=== PATIENT | male | born 1955 | race Caucasian/White ===

== ENCOUNTER 2019-01-24 12:56 | Emergency (ER) | payer BC ==
[~2019-01-24] VITALS: Ht 182.9 cm; Wt 93.1 kg
[2019-01-24 13:14] VITALS: Ht 182.9 cm; Wt 93.1 kg
[2019-01-24] MEDS ORDERED: DILTIAZEM 25 MG INJ ONE (13:26)
[2019-01-24] MEDS ORDERED: DILTIAZEM 25 MG INJ IV ONE ×2 (13:30→15:00)
[2019-01-24] MEDS ORDERED: LEVO125T71 PO (13:37)
[2019-01-24] MEDS ORDERED: PANT40TA3 PO (13:37)
[2019-01-24] MEDS ORDERED: DILTIAZEM-D5W 125MG/125ML DRIP 125 ML IV SCH (14:00)
--- NOTE | 2019-01-24 14:46 | ERD ---
ER Documentation Chief Complaint Chief Complaint intermittent bouts of Tachycardia x 1hour post rotater cuff surgery today HPI This is a 63-year-old male who just had left rotator shoulder surgery across the street at [facility] and during the operation he was going into a tachycardia with a heart rate up to 150 and back down to 70. In recovery he was found to be tachycardic again an EKG demonstrated sinus tach versus SVT. The patient says that he has had tachycardia in the past and wore a Holter monitor which was unremarkable. The patient said he had a calcium score done on his heart 3 days ago. He does not know the results. He is not having any chest pain postoperatively but during my exam he went into tachycardia which resembled A. fib with RVR. ROS All systems reviewed and are negative except as per history of present illness. Medications Home Meds Reported Medications Pantoprazole* (Protonix*) 40 Mg Tablet.dr, 40 MG PO DAILY, TAB 01/24/19 Levothyroxine Sodium* (Levoxyl*) 125 Mcg Tablet, 125 MCG PO BEFORE BREAKFAST, #30 TAB 01/24/19 Allergies Allergies: Coded Allergies: Penicillins (Unverified Allergy, Severe, 01/24/19) PMhx/Soc Medical and Surgical Hx: pt denies Medical Hx History of Surgery: Yes (back, L.Knee, Bilat shoulder) Anesthesia Reaction: No Hx Neurological Disorder: No Hx Respiratory Disorders: No Hx Cardiac Disorders: No Hx Psychiatric Problems: No Hx Miscellaneous Medical Probl: No Hx Alcohol Use: Yes (social) Hx Substance Use: No Hx Tobacco Use: No Smoking Status: Never smoker FmHx Family History: No coronary disease Physical Exam Vitals Vital Signs Date Temp Pulse Resp B/P (MAP) Pulse Ox O2 O2 Flow FiO2 Time Delivery Rate 01/24/19 98.2 73 20 117/74 100 Nasal 3.0 13:30 (88) Cannula 01/24/19 Nasal 3 13:28 Cannula 01/24/19 98.2 83 15 119/91 97 13:14 (100) Physical Exam Const: Well-developed, well-nourished Head: Atraumatic, normocephalic Eyes: Normal Conjunctiva, PERRLA, EOMI, normal sclera, no nystagmus ENT: Normal External Ears, Nose and Mouth, moist mucus membranes. Neck: Full range of motion. No meningismus, no lymphadenopathy. Resp: Clear to auscultation bilaterally, no wheezing, rhonchi, rales Cardio: Regular rate and rhythm, no murmurs, S1 S2 present Abd: Soft, non tender x 4, non distended. Normal bowel sounds, no gu arding or rebound, no pulsitile abdominal masses or bruits Skin: No petechiae or rashes, no ecchymosis , no maculopapular rash Back: No midline or flank tenderness Ext: No cyanosis, or edema, FROM x 4, normal inspection, neurovascularly intact x 4, left shoulder is in large bulky sling Neur: Awake and alert, STR 5/5 x 4, sensation intact x 4, no focal findings, cerebellum intact Psych: Normal Mood and Affect Result Diagram: 01/24/19 1349 01/24/19 1349 Results 24 hrs Laboratory Tests Test 01/24/19 13:49 White Blood Count 10.4 10^3/ul Red Blood Count 4.72 10^6/ul Hemoglobin 15.8 g/dl Hematocrit 44.6 % Mean Corpuscular Volume 94.5 fl Mean Corpuscular Hemoglobin 33.5 pg Mean Corpuscular Hemoglobin Concent 35.4 g/dl Red Cell Distribution Width 13.2 % Platelet Count 203 10^3/UL Mean Platelet Volume 10.3 fl Immature Granulocytes % 0.700 % Neutrophils % 91.8 % Lymphocytes % 5.3 % Monocytes % 2.0 % Eosinophils % 0.0 % Basophils % 0.2 % Nucleated Red Blood Cells % 0.0 /100WBC Immature Granulocytes # 0.070 10^3/ul Neutrophils # 9.5 10^3/ul Lymphocytes # 0.6 10^3/ul Monocytes # 0.2 10^3/ul Eosinophils # 0.0 10^3/ul Basophils # 0.0 10^3/ul Nucleated Red Blood Cells # 0.0 10^3/ul Sodium Level 141 mmol/L Potassium Level 5.5 mmol/L Chloride Level 107 mmol/L Carbon Dioxide Level 25 mmol/L Anion Gap 9 Blood Urea Nitrogen 21 mg/dl Creatinine 1.01 mg/dl Est Glomerular Filtrat Rate mL/min > 60 mL/min Glucose Level 142 mg/dl Calcium Level 9.5 mg/dl Troponin I < 0.012 ng/ml Current Medications Medications Dose Sig/Pravin Start Time Status Last (Trade) Ordered Route PRN Stop Time Admin Dose Reason Admin Diltiazem 25 mg STK-MED 01/24/19 DC HCl ONCE .ROUTE 13:26 (Cardizem Iv) 01/24/19 13:27 Diltiazem 20 mg ONCE ONCE 01/24/19 DC 01/24/19 HCl IV 13:30 13:30 (Cardizem Iv) 01/24/19 13:31 Diltiazem 125 ml @ [id number] IV 01/24/19 01/24/19 HCl 10 mls/hr 14:00 14:25 Procedures/MDM EKG: Rate/Rhythm: A. fib with RVR QRS, ST, QT: NORMAL DC, QRS, QT] Impression: Fib with RVR EKG: Rate/Rhythm: A. fib heart rate 87 QRS, ST, QT: NORMAL DC, QRS, QT] Impression: A. fib heart rate 87 MR #: [id number] DOS: 01/24/19 1326 Ordering MD: JOSE FLOWERS DO Location: E/R Room/Bed: PROCEDURE: XR Chest. CLINICAL INDICATION: Chest pain TECHNIQUE: Single portable view of the chest was obtained COMPARISON: None FINDINGS: The heart is enlarged. There is mild elevation of the left diaphragm with left lower lobe linear atelectasis. There is no pleural effusion or pneumothorax. RPTAT: AA IMPRESSION: Mild Cardiomegaly. Mild elevation of the left diaphragm with left lower lobe linear atelectasis. .Iker Goodwin MD, MD Date Time Electronically viewed and signed by .Iker Goodwin MD, MD on 01/24/2019 14:02 .S/ CC: JOSE FLOWERS DO [id number] Patient was given Cardizem 20,000,000 g IV bolus followed by 10 mg an hour drip. Will admit the patient for A. fib with RVR Critical Care Time: 30 minutes Treatments/Evaluations: Close monitoring and treatment of unstable vital signs, cardiorespiratory, and neurologic status, while maintaining tight balance of fluid, respiratory, and cardiac interventions. This time includes discussing the case with the patient and the patient's family. This time does not include all procedures stated elsewhere in this record. This time also includes reviewing old records, labs and radiological studies. This time includes examining and re- examining the patient. Additionally, this time also includes arranging care with admitting and consulting physicians. Departure Diagnosis: Primary Impression: Atrial fibrillation with RVR Condition: Stable JOSE FLOWERS DO Jan 24, 2019 14:46
[2019-01-24] MEDS ORDERED: ONDANSETRON 4 MG INJ IV PRN (15:00)
[2019-01-24] MEDS ORDERED: ACETAMINOPHEN 325 MG TAB PO PRN (15:00)
[2019-01-24] MEDS ORDERED: morphine 4 MG/ML VIAL IV STA (18:05)
[2019-01-24] MEDS ORDERED: ONDANSETRON 4 MG INJ IV STA (18:05)
[2019-01-24 18:41] VITALS: BP 130/78; PULSE 65; RESP 12
== END 2019-01-24 19:50 | disposition short-term general hospital (02) ==
LOC: E/R 12:56 → CANRESERV 18:23 → E/R 19:50 → CANBEDREQ 21:55
DX: I48.91 Unspecified atrial fibrillation (principal)
CPT/HCPCS: 71045; 80048; 84484; 85025; 93005; 96374; 96375; 96376; 99291; J2270; J2405

== ENCOUNTER 2019-04-06 05:23 | Day surgery (SDC) | payer BC ==
[2019-04-05 11:43] VITALS: BMI 28.5
[2019-04-06] VITALS (11 sets, daily range): BP systolic 92–116; BP diastolic 63–80; PULSE 40–56; RESP 16–20; Ht 182.9 cm; Wt 93.2 kg
[~2019-04-06] VITALS: Ht 182.9 cm; Wt 93.2 kg
[~2019-04-06 05:23] MED LIST: LEVO125T71 PO; PANT40TA3 PO
[2019-04-06] MEDS ORDERED: METO-429 PO (06:33)
[2019-04-06] MEDS ORDERED: APIX5TAB PO (06:33)
[2019-04-06] MEDS ORDERED: FLECAINIDE (06:33)
--- NOTE | 2019-04-06 06:57 | PREAC ---
Date/Time of Note Date/Time of Note DATE: 04/06/19 TIME: 06:54 Anesthesia Eval and Record Evaluation Time Pre-Procedure Interview DATE: 04/06/19 TIME: 06:54 Age 63 Sex male NPO: 8 hrs Preoperative diagnosis Back pain Planned procedure L2 Transforaminal JAZLYN Past Medical History Past Medical History: Includes Cardio: Arrythmia (New onset Afib December 2018 in PACU [place] [facility] [place] managed on meds. Saw laundry assistant 3 days ago, deemed low risk for today's procedure) Endo: Hypothyroid Neuro: Other (Chronic back pain) GI: GERD (well-controlled GERD) Surgery & Anesthesia Issues No known issue Meds Anticoagulation: Yes (Eliquis taken 5 days ago.) Beta Krista within 24 hr: Yes Reported Medications Apixaban* (Eliquis*) 5 Mg Tablet, 10 MG PO DAILY, TAB 04/06/19 Metoprolol Tartrate* (Lopressor*) 50 Mg Tab, 50 MG PO DAILY, #60 TAB 04/06/19 [Flacainde Acetate] No Conflict Check, 50 MG BID 04/06/19 Pantoprazole* (Protonix*) 40 Mg Tablet.dr, 40 MG PO DAILY, TAB 01/24/19 Levothyroxine Sodium* (Levoxyl*) 125 Mcg Tablet, 125 MCG PO BEFORE BREAKFAST, #30 TAB 01/24/19 Meds reviewed: Yes Allergies Coded Allergies: Penicillins (Unverified Allergy, Severe, 01/24/19) Allergies Reviewed: Yes Labs/Studies Labs Reviewed: Other (NONE) test: N/A Studies: ECG (sb hr 40 prolonged CO) Pre-procedure Exam Last vitals Vital Signs Date Temp Pulse Resp B/P (MAP) Pulse Ox O2 O2 Flow FiO2 Time Delivery Rate 04/06/19 97.4 40 18 92/66 (75) 96 Room Air 06:19 Airway: Adequate mouth opening, Adequate thyromental dist Mallampati: Mallampati II Teeth: Normal Lung: Normal Heart: Normal ASA Physical Status ASA physical status: 2 Emergency: None Planned Anesthetic General/MAC: MAC Planned Pain Management Parenteral pain med, Local by surgeon Pre-operative Attestations Prior to commencing anesthesia and surgery, the patient was re-evaluated, there was verification of: *The patient's identity *The results of appropriate recent lab work and preoperative vital signs *The above evaluation not changing prior to induction *Anesthetic plan, risk benefits, alternative and complications discussed with patient/family; questions answered; patient/family understands, accepts and wishes to proceed. SAL AGUIRRE Apr 06, 2019 06:57
[2019-04-06] MEDS ORDERED: PROPOFOL 20 ML ONE (07:06)
[2019-04-06] MEDS ORDERED: LIDOCAINE 2% (SDV) 5 ML INJ ONE (07:06)
[2019-04-06] MEDS ORDERED: FENTAnyl 50 MCG/ML VIAL ONE (07:06)
[2019-04-06] MEDS ORDERED: MIDAZOLAM 1 MG/ML 2 ML INJ ONE (07:06)
[2019-04-06] MEDS ORDERED: BUPIVACAINE 0.25% (MPF) 30 ML INJ ONE (07:44)
[2019-04-06] MEDS ORDERED: LIDOCAINE 1% (MPF) 30 ML INJ ONE (07:44)
--- NOTE | 2019-04-06 07:44 | HPN ---
Date/Time of Note Date/Time of Note DATE: 04/06/19 TIME: 07:44 Interval H&P Admission Note Pt. seen H&P reviewed: No system changes TAWANA NEAL MD Apr 06, 2019 07:44
[2019-04-06] MEDS ORDERED: FENTAnyl 50 MCG/ML VIAL IV PRN ×3 (08:00)
[2019-04-06] MEDS ORDERED: OXYCODONE/ACETAMINOPHEN (5/325) TAB PO PRN ×2 (08:00)
[2019-04-06] MEDS ORDERED: ONDANSETRON 4 MG INJ IV PRN (08:00)
[2019-04-06] MEDS ORDERED: MIDAZOLAM 1 MG/ML 2 ML INJ IV PRN (08:00)
[2019-04-06] MEDS ORDERED: ONDANSETRON 4 MG INJ ONE (08:10)
[2019-04-06] MEDS ORDERED: IOHEXOL 300MG/ML 30 ML BTL ONE (08:15)
--- NOTE | 2019-04-06 08:38 | OPR ---
Date/Time of Note Date/Time of Note DATE: 04/06/19 TIME: 08:31 Operative Report Procedure Date: Apr 06, 2019 Preoperative Diagnosis Lumbar radiculopathy Postoperative Diagnosis Lumbar radiculopathy Operation/Procedure Performed Right L2 Transforaminal epidural block Surgeon see signature line Car Shakeout Operator none Anesthesia Type: MAC Tourniquet Time: none Estimated Blood Loss: none Transfusion none Specimen none Grafts/Implants none Tubes/Drains none Complications none Disposition: PACU Procedure Description Time-out was taken to identify the correct patient, procedure and side prior to starting the procedure. Lying in a prone position, the patient was prepped and draped in the usual sterile fashion using ChloroPrep and a fenestrated drape. The area to be injected was determined under fluoroscopic guidance. Local anesthetic was given by raising a skin wheal and going down to the hub of a 27-gauge 1.25-inch needle. The 3.5-inch 25-gauge Quincke needle was advanced toward the 6 oclock position of the pedicle at right L2 nerve root level. The needle was advanced to the final position via a lateral fluoroscopic intermittent image. Omnipaque 300 was injected and showed epidural spread and there was no vascular runoff. After a negative aspiration, the medication was then injected. The procedure was completed without complications and was tolerated well. The patient was monitored after the procedure. The patient (or responsible democrat) was given post-procedure and discharge instructions to follow at home. The patient was discharged in stable condition. A follow-up appointment was made. Copies To: CC: TARIK LINDSEY MD ; TAWANA NEAL MD Apr 06, 2019 08:38
--- NOTE | 2019-04-06 08:39 | SIPON ---
Date/Time of Note Date/Time of Note DATE: 04/06/19 TIME: 08:38 Operative Report Preoperative Diagnosis Lumbar radiculopathy Postoperative Diagnosis Lumbar radiculopathy Operation/Procedure Performed Right L2 Transforaminal epidural block Surgeon see signature line pharmacy assistant none Anesthesia: MAC Estimated blood loss: none Transfusion Required none Specimen none Grafts/Implants none Complications none TAWANA NEAL MD Apr 06, 2019 08:39
[2019-04-06] MEDS ORDERED: DEXAMETHASONE 10 MG/ML 1 ML INJ IV ONE (09:00)
--- NOTE | 2019-04-06 10:36 | PAC ---
Date/Time of Note Date/Time of Note DATE: 04/06/19 TIME: 10:36 Post-Anesthesia Notes Post-Anesthesia Note Last documented vital signs Vital Signs Date Temp Pulse Resp B/P (MAP) Pulse Ox O2 O2 Flow FiO2 Time Delivery Rate 04/06/19 98.0 49 17 108/66 94 Room Air 09:15 (80) Activity: WNL Respiratory function: WNL Cardiovascular function: WNL Mental status: Baseline Pain reasonably controlled: Yes Hydration appropriate: Yes Nausea/Vomiting absent: Yes SAL AGUIRRE Apr 06, 2019 10:36
--- NOTE | 2019-04-06 14:23 | RADRPT ---
Vent Rate: 40 bpm RR Interval: 1504 msec NH Interval: 285 msec QRS Duration: 91 msec QT Interval: 435 msec QTC Interval: 355 msec P-R-T [place]: 52 - 64 - 62 degrees Sinus bradycardia...rate< 50 Prolonged NH interval...NH >230, V-rate 30- 49 Electronically Signed By: Douglas Hester
== END 2019-04-06 10:20 | disposition home or self-care (01) ==
LOC: SDS 05:23
PROVIDERS: ATTEND Anesthesiology
DX: M54.16 Radiculopathy, lumbar region (principal); I48.91 Unspecified atrial fibrillation; E03.9 Hypothyroidism, unspecified
CPT/HCPCS: 64483; 72100; 93005; J1100; J2250; J2405; J3010; Q9967

== ENCOUNTER 2019-05-03 05:22 | Day surgery (SDC) | payer BC ==
[2019-05-03] VITALS (14 sets, daily range): BP systolic 94–141; BP diastolic 58–81; PULSE 40–61; RESP 14–25
[~2019-05-03] VITALS: Ht 182.9 cm; Wt 94.0 kg
[~2019-05-03 05:22] MED LIST changes: +APIX5TAB PO; +FLECAINIDE; +METO-429 PO
[2019-05-03] MEDS ORDERED: FLEC50TA PO (06:54)
--- NOTE | 2019-05-03 07:23 | PREAC ---
Date/Time of Note Date/Time of Note DATE: 05/03/19 TIME: 07:21 Anesthesia Eval and Record Evaluation Time Pre-Procedure Interview DATE: 05/03/19 TIME: 07:21 Age 64 Sex male NPO: 8 hrs Preoperative diagnosis lumbar disc disease Planned procedure lumbar transforaminal steroid injection, sacra iliac joint injection Past Medical History Past Medical History: Includes Cardio: HTN, Arrythmia (a fib) GI: Obesity Surgery & Anesthesia Issues Other issues (a fib) Meds Anticoagulation: No Beta Krista within 24 hr: Yes Reported Medications Flecainide Acetate* (Flecainide Acetate*) 50 Mg Tablet, 50 MG PO BID, TAB 05/03/19 Apixaban* (Eliquis*) 5 Mg Tablet, 10 MG PO DAILY, TAB 04/06/19 Metoprolol Tartrate* (Lopressor*) 50 Mg Tab, 50 MG PO DAILY, #60 TAB 04/06/19 Pantoprazole* (Protonix*) 40 Mg Tablet.dr, 40 MG PO DAILY, TAB 01/24/19 Levothyroxine Sodium* (Levoxyl*) 125 Mcg Tablet, 125 MCG PO BEFORE BREAKFAST, #30 TAB 01/24/19 Discontinued Reported Medications [Flacainde Acetate] No Conflict Check, 50 MG BID 04/06/19 Meds reviewed: Yes Allergies Coded Allergies: Penicillins (Unverified Allergy, Severe, 05/03/19) Allergies Reviewed: Yes Labs/Studies Labs Reviewed: Reviewed by anesthesiologist Result Diagram: 05/03/19 0609 05/03/19 0609 Laboratory Tests 05/03/19 06:09 test: N/A Pre-procedure Exam Last vitals Vital Signs Date Temp Pulse Resp B/P (MAP) Pulse Ox O2 O2 Flow FiO2 Time Delivery Rate 05/03/19 97.7 60 16 110/81 96 Room Air 06:30 (91) Airway: Adequate mouth opening, Adequate thyromental dist Mallampati: Mallampati I Teeth: Normal Lung: Normal Heart: Normal ASA Physical Status ASA physical status: 2 Emergency: None Planned Anesthetic General/MAC: MAC Planned Pain Management Parenteral pain med Pre-operative Attestations Prior to commencing anesthesia and surgery, the patient was re-evaluated, there was verification of: *The patient's identity *The results of appropriate recent lab work and preoperative vital signs *The above evaluation not changing prior to induction *Anesthetic plan, risk benefits, alternative and complications discussed with patient/family; questions answered; patient/family understands, accepts and wishes to proceed. PATRICK CARL May 03, 2019 07:23
--- NOTE | 2019-05-03 07:33 | HPN ---
Date/Time of Note Date/Time of Note DATE: 05/03/19 TIME: 07:32 Interval H&P Admission Note Pt. seen H&P reviewed: No system changes TAWANA NEAL MD May 03, 2019 07:33
[2019-05-03] MEDS ORDERED: ROPIVACAINE 0.5 % 30 ML VIAL ONE (07:36)
--- NOTE | 2019-05-03 07:36 | SIPON ---
Date/Time of Note Date/Time of Note DATE: 05/03/19 TIME: 07:33 Operative Report Preoperative Diagnosis Lumbar radiculopathy Sacroiliitis Postoperative Diagnosis Lumbar radiculopathy Sacroiliitis Operation/Procedure Performed Right L2 Transforaminal epidural steroid injection Right sacroiliac joint injection Surgeon see signature line hospital clinic assistant none Anesthesia: MAC Estimated blood loss: none Transfusion Required none Specimen none Grafts/Implants none Complications none TAWANA NEAL MD May 03, 2019 07:36
[2019-05-03] MEDS ORDERED: TRIAMCINOLONE ACET 40 MG/ML INJ ONE (07:37)
[2019-05-03] MEDS ORDERED: BETAMET NA PHOS/AC(6 MG/ML) 5ML INJ ONE (07:37)
[2019-05-03] MEDS ORDERED: FENTAnyl 50 MCG/ML VIAL ONE ×2 (07:37→08:40)
[2019-05-03] MEDS ORDERED: SODIUM CL BACTERIOSTATIC 30 ML INJ ONE (07:37)
[2019-05-03] MEDS ORDERED: IOHEXOL 300MG/ML 30 ML BTL ONE (07:37)
[2019-05-03] MEDS ORDERED: PROPOFOL 20 ML ONE (07:38)
[2019-05-03] MEDS ORDERED: LIDOCAINE 1% (MPF) 30 ML INJ ONE (08:00)
[2019-05-03] MEDS ORDERED: BUPIVACAINE 0.25% (MPF) 30 ML INJ ONE (08:00)
[2019-05-03] MEDS ORDERED: LIDOCAINE 2% (SDV) 5 ML INJ ONE (08:30)
--- NOTE | 2019-05-03 08:39 | PAC ---
Date/Time of Note Date/Time of Note DATE: 05/03/19 TIME: 08:39 Post-Anesthesia Notes Post-Anesthesia Note Last documented vital signs Vital Signs Date Temp Pulse Resp B/P (MAP) Pulse Ox O2 O2 Flow FiO2 Time Delivery Rate 05/03/19 97.7 60 16 110/81 96 Room Air 0839 (91) Activity: WNL Respiratory function: WNL Cardiovascular function: WNL Mental status: Baseline Pain reasonably controlled: Yes Hydration appropriate: Yes Nausea/Vomiting absent: Yes PATRICK CARL May 03, 2019 08:39
[2019-05-03] MEDS ORDERED: KETOROLAC 30 MG INJ ONE (08:50)
[2019-05-03] MEDS ORDERED: KETOROLAC 30 MG INJ IM STA (08:53)
[2019-05-03] MEDS ORDERED: MIDAZOLAM 1 MG/ML 2 ML INJ IV PRN (09:00)
[2019-05-03] MEDS ORDERED: hydrALAzine 20 MG INJ IV PRN (09:00)
[2019-05-03] MEDS ORDERED: EPHEDrine 25 MG/5 ML SYG IV PRN (09:00)
[2019-05-03] MEDS ORDERED: MEPERIDINE 25 MG INJ IV PRN (09:00)
[2019-05-03] MEDS ORDERED: FENTAnyl 50 MCG/ML VIAL IV PRN ×2 (09:00)
[2019-05-03] MEDS ORDERED: LABETALOL HCL 20MG INJ IV PRN (09:00)
[2019-05-03] MEDS ORDERED: DIPHENHYDRAMINE 50 MG INJ IV PRN (09:00)
[2019-05-03] MEDS ORDERED: KETOROLAC 30 MG INJ IV PRN (09:00)
[2019-05-03] MEDS ORDERED: OXYCODONE/ACETAMINOPHEN (5/325) TAB PO PRN ×2 (09:00)
--- NOTE | 2019-05-03 09:04 | OPR ---
Date/Time of Note Date/Time of Note DATE: 05/03/19 TIME: 08:51 Operative Report Procedure Date: May 03, 2019 Preoperative Diagnosis Lumbar radiculopathy Sacroiliitis Postoperative Diagnosis Lumbar radiculopathy Sacroiliitis Operation/Procedure Performed Right L2 Transforaminal epidural steroid injection Right sacroiliac joint injection Surgeon see signature line Director Of Valuation none Anesthesia Type: MAC Estimated Blood Loss: none Transfusion none Specimen none Grafts/Implants none Tubes/Drains none Complications none Disposition: PACU Procedure Description After informed consent, the patient was taken to the OR and placed in a prone position. Monitors were applied, time out called and IV sedation titrated. When the patient was comfortable, the lower back and right buttock were prepped in sterile fashion with chloroprep. Then the endplates of L2 was aligned and the C-arm was tilted obliquely to the RIGHT and 1% 3cc PF lidocaine skin wheal was raised with a 27G needle lateral to the midline. Then L2-3 foramen on the RIGHT was accessed under direct intermittent fluoroscopy with a 25G short bevel needle with using the pedicle and superior articular process as a guide. Lateral and AP view was used to confirm needle placement and depth. Negative aspiration confirmed for blood and csf. No paresthesias. In the AP view 1/2 cc of contrast omnipaque 240 showed good spread of dye along the L2 nerve root on the RIGHT and into the axillary recess, 2 cc of 1% PF lidocaine was injected without adverse effect. Then the right sacroiliac joint was determined under fluoroscopy. Local anesthetic was given by raising a skin wheal and going down to the hub of a 27-gauge 1.25-inch needle. The 3.5-inch 22-gauge Quincke needle was advanced into the above sacroiliac joint. After a negative aspirate to make sure that there was no intravascular placement, Omnipaque 240 was injected to confirm intraarticular spread, and confirm no vascular runoff. Medication (1% lidocaine 2ml and 40mg kenalog) was then injected slowly. The needles were removed and the patient was transported to PACU in a stable condition. The procedures were completed without complications and were tolerated well. The patient was monitored after the procedure. The patient (or responsible republican) was given post-procedure and discharge instructions to follow at home. The patient was discharged in stable condition TAWANA NEAL MD May 03, 2019 09:03
[2019-05-03] MEDS: FENTAnyl 50 MCG/ML VIAL IV PRN ×3 (09:05→09:29)
--- NOTE | 2019-05-03 15:42 | RADRPT ---
Vent Rate: 42 bpm RR Interval: 1416 msec AR Interval: 270 msec QRS Duration: 93 msec QT Interval: 430 msec QTC Interval: 361 msec P-R-T [place]: 50 - 58 - 62 degrees Sinus bradycardia...rate< 50 Prolonged AR interval...AR >230, V-rate 30- 49 Electronically Signed By: Carlos Dumont
== END 2019-05-03 10:45 | disposition home or self-care (01) ==
LOC: SDS 05:22
PROVIDERS: ATTEND Anesthesiology
DX: M54.16 Radiculopathy, lumbar region (principal); M46.1 Sacroiliitis, not elsewhere classified
CPT/HCPCS: 27096; 71045; 76000; 80048; 85025; 85610; 85730; 93005; J0702; J1885; J3010; Q9967; J2795